=== PATIENT | male | born 1950 ===

== ENCOUNTER 2022-04-17 05:55 | Inpatient (IN) ==
[2022-04-11 12:49] LABS: Basophils # 0.1 10*3/uL (0.0-0.2); Basophils % 0.4 % (0.0-0.8); Eosinophils # 0.3 10*3/uL (0.0-0.87); Hematocrit 31.8 VOL% (42.0-52.0); Hemoglobin 9.7 GM/DL (14.0-18.0); Immature Granulocytes % 0.9 %; Lymphocytes # 1.9 10*3/uL (1.4-4.0); Lymphocytes % 16.5 % (21.2-54.2); Mean Corpuscular HGB Conc 30.5 GM/DL (32-36); Mean Corpuscular Volume 92.7 FL (87-102); Mean Platelet Volume 9.9 FL (9.6-12.0); Monocytes % 8.4 % (1.7-12.7); Neutrophils % 70.8 % (38.7-73.9); Platelet Count 323 T/CUMM (130-400); Red Blood Count 3.43 MC/CUMM (3.8-5.5); Red Cell Distribution Width 14.3 % (9.3-17.3); White Blood Count 11.4 T/CUMM (4-12)
[2022-04-11 13:01] LABS: Alanine Aminotransferase 15 U/L (16-61); Albumin 3.8 G/DL (3.4-5.0); Alkaline Phosphatase 55 U/L (45-117); Aspartate Amino Transferase 9 U/L (0-37); Bilirubin,Total < 0.39 MG/DL (0.20-1.00); Blood Urea Nitrogen 51 MG/DL (7-18); Calcium 9.2 MG/DL (8.5-10.1); Carbon Dioxide 26 MMOL/L (21-32); Chloride 112 MMOL/L (98-107); Glucose 255 MG/DL (74-106); Potassium 5.1 MMOL/L (3.5-5.1); Sodium 143 MMOL/L (136-145); Total Protein 6.8 G/DL (6.4-8.2)
[2022-04-17] MEDS ORDERED: cefTRIAXone 1,000 MG in SODIUM CHLORIDE 0.9% 100 ML IV ONE (06:00)
[2022-04-17] MEDS ORDERED: ALVIMOPAN 12 MG CAPSULE PO ONE (06:00)
[2022-04-17] MEDS ORDERED: SEVOFLURANE 1 UNIT/15 MINUTE INH ONE (06:17)
[2022-04-17] MEDS ORDERED: propofoL 200 MG/20 ML VIAL IV ONE (06:17)
[2022-04-17] MEDS ORDERED: LIDOCAINE 2% 5 ML VIAL ONE ×2 (06:17→06:52)
[2022-04-17] MEDS ORDERED: ONDANSETRON 4 MG/2 ML VIAL ONE (06:17)
[2022-04-17] MEDS ORDERED: ETOMIDATE 40 MG/20 ML VIAL IV ONE (06:17)
[2022-04-17] MEDS ORDERED: PHENYLEPHRINE 1 MG/10 ML SYRINGE IV ONE (06:17)
[2022-04-17] MEDS ORDERED: ROCURONIUM 50 MG/5 ML VIAL IV ONE (06:17)
[2022-04-17] MEDS ORDERED: MIDAZOLAM 2 MG/2 ML VIAL ONE (06:18)
[2022-04-17] MEDS ORDERED: fentaNYL 100 MCG/2 ML VIAL ONE ×2 (06:18→07:19)
[2022-04-17] MEDS ORDERED: SODIUM CHLORIDE 0.9% 250 ML IV SCH (06:30)
[2022-04-17 06:35] LABS: Hematocrit 31.6 VOL% (42.0-52.0); Hemoglobin 9.8 GM/DL (14.0-18.0)
[2022-04-17] MEDS ORDERED: HEPARIN 5,000 UNIT/1 ML VIAL ONE ×2 (06:38→09:49)
[2022-04-17] MEDS ORDERED: ROPIVACAINE 0.5% 30 ML VIAL ONE ×2 (06:38→06:52)
[2022-04-17] MEDS ORDERED: LIDOCAINE 1%/EPI INJ 20 ML VIAL ONE (06:38)
[2022-04-17] MEDS ORDERED: TISSUE ADHESIVE 1 EACH APPLICATOR TOP ONE (06:39)
[2022-04-17] MEDS ORDERED: DEXAMETHASONE 4 MG/1 ML VIAL ONE (06:52)
[2022-04-17] MEDS ORDERED: ePHEDrine 50 MG/ML VIAL ONE ×2 (07:46→10:23)
[2022-04-17] MEDS ORDERED: SODIUM CHLORIDE 0.9% 500 ML IV ONE (07:50)
[2022-04-17] MEDS ORDERED: PHENYLEPHRINE 10 MG/1 ML VIAL IV ONE ×2 (07:51→10:42)
[2022-04-17] MEDS ORDERED: SODIUM CHLORIDE 0.9% IV ONE (08:30)
[2022-04-17] MEDS ORDERED: DESMOPRESSIN IV ONE (08:30)
[2022-04-17 08:50] LABS: Bacteria,Urine Occasional /HPF (Few); Hyaline Casts,Urine 5 /LPF (0-3); Mucus,Urine Occasional /LPF (Occasional); RBC,Urine 1 /HPF (0-4)
[2022-04-17 08:51] LABS: Bilirubin,Urine Negative (Negative); Blood, Urine Negative (Negative); Glucose,Urine (UA) Negative (Negative); Ketones,Urine Negative (Negative); Nitrite,Urine Negative (Negative); Protein,Urine Negative (Negative); Urine Appearance Clear (Clear); Urine Color Yellow (Yellow); Urine Specific Gravity 1.015 (1.001-1.035)
[2022-04-17 08:52] LABS: Urine Urobilinogen 0.2 eU/dL (<2.0)
[2022-04-17] MEDS ORDERED: SODIUM CHLORIDE 0.9% 250 ML IV ONE (09:07)
[2022-04-17] MEDS ORDERED: DESMOPRESSIN 4 MCG/1 ML AMP IV ONE (09:30)
[2022-04-17] MEDS ORDERED: CALCIUM CHLORIDE 1,000 MG/10 ML VIAL IV ONE (10:04)
[2022-04-17] MEDS ORDERED: SODIUM BICARBONATE 50 MEQ/50 ML VIAL IV ONE (10:20)
[2022-04-17] MEDS ORDERED: HYDROmorphone 1 MG/1 ML SYRINGE IV PRN (10:47)
[2022-04-17] MEDS ORDERED: oxyCODONE/ACETAMINOPHEN 5-325 MG TABLET PO PRN (10:47)
[2022-04-17] MEDS ORDERED: diphenhydrAMINE 50 MG/1 ML VIAL IV PRN (10:47)
[2022-04-17] MEDS ORDERED: PROMETHAZINE 25 MG/1 ML VIAL IM PRN (10:47)
[2022-04-17] MEDS ORDERED: ONDANSETRON 4 MG/2 ML VIAL IV PRN (10:47)
[2022-04-17] MEDS ORDERED: SIMETHICONE CHEW 125 MG TABLET PO PRN (10:47)
[2022-04-17] MEDS ORDERED: ALBUTEROL 2.5 MG/3 ML NEB RESP TX PRN (10:51)
[2022-04-17] MEDS ORDERED: DEXTROSE 10% 250 ML BAG IV PRN (10:53)
[2022-04-17] MEDS ORDERED: GLUCAGON 1 MG VIAL IM PRN (10:53)
[2022-04-17] MEDS ORDERED: SUGAMMADEX 200 MG/2 ML VIAL IV ONE (10:58)
[2022-04-17] MEDS ORDERED: ceFAZolin 1,000 MG VIAL ONE (11:00)
[2022-04-17] MEDS ORDERED: FUROSEMIDE 20 MG/2 ML VIAL ONE (11:24)
[2022-04-17 11:55] LABS: Basophils # 0.1 10*3/uL (0.0-0.2); Basophils % 0.4 % (0.0-0.8); Eosinophils # 0.1 10*3/uL (0.0-0.87); Eosinophils % 0.8 % (0.00-10.9); Hematocrit 30.7 VOL% (42.0-52.0); Hemoglobin 9.4 GM/DL (14.0-18.0); Immature Granulocytes % 0.7 %; Lymphocytes # 1.4 10*3/uL (1.4-4.0); Lymphocytes % 10.1 % (21.2-54.2); Mean Corpuscular HGB Conc 30.6 GM/DL (32-36); Mean Corpuscular Volume 92.7 FL (87-102); Mean Platelet Volume 9.2 FL (9.6-12.0); Monocytes # 0.5 10*3/uL (0.11-0.8); Monocytes % 3.6 % (1.7-12.7); Neutrophils % 84.4 % (38.7-73.9); Platelet Count 269 T/CUMM (130-400); Red Blood Count 3.31 MC/CUMM (3.8-5.5); Red Cell Distribution Width 14.5 % (9.3-17.3); White Blood Count 14.3 T/CUMM (4-12)
[2022-04-17 12:13] LABS: Calcium 8.8 MG/DL (8.5-10.1); Potassium 4.9 MMOL/L (3.5-5.1)
[2022-04-17] MEDS: INSULIN REGULAR 100 UNIT/ML SUBCUT SCH ×3 (12:52→21:24)
[2022-04-17] MEDS: ACETAMINOPHEN 325 MG TABLET PO SCH ×3 (12:52→23:03)
[2022-04-17] MEDS ORDERED: hydrALAZINE 20 MG/1 ML VIAL IV PRN (14:20)
[2022-04-17] MEDS: SODIUM CHLORIDE 0.9% 1,000 ML IV SCH ×2 (16:57→23:08)
[2022-04-17] MEDS: cloNIDine 0.1 MG TABLET PO SCH (21:23)
[2022-04-17] MEDS: DOCUSATE SODIUM 100 MG CAPSULE PO SCH (21:24)
[2022-04-17] MEDS: GABAPENTIN 100 MG CAPSULE PO SCH (21:24)
[2022-04-17] MEDS: ALVIMOPAN 12 MG CAPSULE PO SCH (21:24)
[2022-04-17] MEDS: DOXAZOSIN 4 MG TABLET PO SCH (21:24)
[2022-04-17] MEDS: BUDESONIDE/FORMOTEROL 160-4.5 INHALER 6 GM INH SCH (23:06)
[2022-04-18] MEDS: SODIUM CHLORIDE 0.9% 1,000 ML IV SCH ×2 (03:02→15:00)
[2022-04-18] MEDS: ACETAMINOPHEN 325 MG TABLET PO SCH ×4 (04:07→22:04)
[2022-04-18 05:59] LABS: Basophils % 0.1 % (0.0-0.8); Eosinophils % 0.1 % (0.00-10.9); Hematocrit 27.7 VOL% (42.0-52.0); Hemoglobin 8.2 GM/DL (14.0-18.0); Immature Granulocytes % 0.6 %; Immature Granulocytes Absolute 0.09 #; Lymphocytes # 1.2 10*3/uL (1.4-4.0); Lymphocytes % 7.8 % (21.2-54.2); Mean Corpuscular HGB Conc 29.6 GM/DL (32-36); Mean Corpuscular Volume 94.9 FL (87-102); Mean Platelet Volume 9.7 FL (9.6-12.0); Monocytes # 1.6 10*3/uL (0.11-0.8); Monocytes % 10.1 % (1.7-12.7); Neutrophils % 81.3 % (38.7-73.9); Platelet Count 267 T/CUMM (130-400); Red Blood Count 2.92 MC/CUMM (3.8-5.5); Red Cell Distribution Width 14.7 % (9.3-17.3); White Blood Count 15.6 T/CUMM (4-12)
[2022-04-18 06:18] LABS: Calcium 8.4 MG/DL (8.5-10.1); Osmolality,Calculated 307.6 MOS/KG (273-304); Potassium 4.8 MMOL/L (3.5-5.1)
[2022-04-18 06:18] LABS: Parathyroid Hormone Intact 135.5 PG/ML (18.4-80.1)
[2022-04-18 06:26] LABS: Phosphorous 5.5 MG/DL (2.5-4.9)
[2022-04-18 06:29] LABS: Risk Ratio 4.61; VLDL Cholesterol 22.4 MG/DL
[2022-04-18] MEDS: cefTRIAXone 1,000 MG in SODIUM CHLORIDE 0.9% 100 ML IV SCH (08:43)
[2022-04-18] MEDS: ALVIMOPAN 12 MG CAPSULE PO SCH ×3 (08:47→21:34)
[2022-04-18] MEDS: AMIODARONE 200 MG TABLET PO SCH ×2 (08:47→11:34)
[2022-04-18] MEDS: DOXAZOSIN 4 MG TABLET PO SCH ×3 (08:47→21:36)
[2022-04-18] MEDS: METOPROLOL SUCCINATE XL 50 MG TABLET PO SCH ×2 (08:48→11:35)
[2022-04-18] MEDS: PANTOPRAZOLE 40 MG TABLET PO SCH (08:48)
[2022-04-18] MEDS: FINASTERIDE 5 MG TABLET PO SCH ×2 (08:48→08:51)
[2022-04-18] MEDS: DOCUSATE SODIUM 100 MG CAPSULE PO SCH ×3 (08:48→21:36)
[2022-04-18] MEDS: INSULIN REGULAR 100 UNIT/ML SUBCUT SCH ×4 (10:32→22:06)
[2022-04-18] MEDS: cloNIDine 0.1 MG TABLET PO SCH ×2 (10:33→21:34)
[2022-04-18] MEDS: BUDESONIDE/FORMOTEROL 160-4.5 INHALER 6 GM INH SCH ×2 (13:36→21:40)
[2022-04-18 14:04] LABS: Hepatitis B Core IgM Quant < 0.05 Index; Hepatitis B Surface Ag Quant < 0.10 Index; Hepatitis B Surface Ag Result Non-Reactive (NonReactive); Hepatitis C Virus Ab Quant 0.06 Index; Hepatitis C Virus Ab Result Non-Reactive (NonReactive)
[2022-04-18] MEDS ORDERED: HEPARIN 10,000 UNIT/10 ML VIAL IV PRN (14:05)
[2022-04-18] MEDS: GABAPENTIN 100 MG CAPSULE PO SCH (21:34)
[2022-04-19 04:50] LABS: Basophils % 0.1 % (0.0-0.8); Eosinophils # 0.3 10*3/uL (0.0-0.87); Eosinophils % 1.8 % (0.00-10.9); Hematocrit 25.1 VOL% (42.0-52.0); Hemoglobin 7.7 GM/DL (14.0-18.0); Immature Granulocytes % 0.5 %; Immature Granulocytes Absolute 0.07 #; Lymphocytes # 1.3 10*3/uL (1.4-4.0); Lymphocytes % 9.5 % (21.2-54.2); Mean Corpuscular HGB Conc 30.7 GM/DL (32-36); Mean Platelet Volume 9.6 FL (9.6-12.0); Monocytes # 1.6 10*3/uL (0.11-0.8); Monocytes % 11.6 % (1.7-12.7); Neutrophils % 76.5 % (38.7-73.9); Platelet Count 211 T/CUMM (130-400); Red Cell Distribution Width 14.8 % (9.3-17.3); White Blood Count 13.8 T/CUMM (4-12)
[2022-04-19 05:06] LABS: Calcium 8.3 MG/DL (8.5-10.1); Osmolality,Calculated 294.1 MOS/KG (273-304); Potassium 4.3 MMOL/L (3.5-5.1)
[2022-04-19] MEDS: ACETAMINOPHEN 325 MG TABLET PO SCH ×4 (06:13→22:45)
[2022-04-19] MEDS: cloNIDine 0.1 MG TABLET PO SCH ×2 (08:35→21:32)
[2022-04-19] MEDS: AMIODARONE 200 MG TABLET PO SCH (08:35)
[2022-04-19] MEDS: cefTRIAXone 1,000 MG in SODIUM CHLORIDE 0.9% 100 ML IV SCH (08:35)
[2022-04-19] MEDS: ALVIMOPAN 12 MG CAPSULE PO SCH ×2 (08:35→21:32)
[2022-04-19] MEDS: FINASTERIDE 5 MG TABLET PO SCH (08:35)
[2022-04-19] MEDS: PANTOPRAZOLE 40 MG TABLET PO SCH (08:36)
[2022-04-19] MEDS: METOPROLOL SUCCINATE XL 50 MG TABLET PO SCH (08:36)
[2022-04-19] MEDS: DOCUSATE SODIUM 100 MG CAPSULE PO SCH ×2 (08:36→21:32)
[2022-04-19] MEDS: BUDESONIDE/FORMOTEROL 160-4.5 INHALER 6 GM INH SCH ×2 (08:36→21:35)
[2022-04-19] MEDS: DOXAZOSIN 4 MG TABLET PO SCH ×2 (08:36→21:32)
[2022-04-19] MEDS: INSULIN REGULAR 100 UNIT/ML SUBCUT SCH ×4 (09:55→21:37)
[2022-04-19] MEDS ORDERED: EPOETIN ALFA-EPBX 10,000 UNIT/ML VIAL IV SCH (15:30)
[2022-04-19] MEDS: GABAPENTIN 100 MG CAPSULE PO SCH (21:33)
[2022-04-20] MEDS: ACETAMINOPHEN 325 MG TABLET PO SCH ×2 (05:07→11:59)
[2022-04-20 05:41] LABS: Basophils % 0.2 % (0.0-0.8); Eosinophils # 0.5 10*3/uL (0.0-0.87); Eosinophils % 3.9 % (0.00-10.9); Hematocrit 26.2 VOL% (42.0-52.0); Hemoglobin 8.1 GM/DL (14.0-18.0); Immature Granulocytes % 0.7 %; Immature Granulocytes Absolute 0.09 #; Lymphocytes # 1.5 10*3/uL (1.4-4.0); Lymphocytes % 11.6 % (21.2-54.2); Mean Corpuscular HGB Conc 30.9 GM/DL (32-36); Mean Corpuscular Volume 92.6 FL (87-102); Mean Platelet Volume 9.3 FL (9.6-12.0); Monocytes # 1.6 10*3/uL (0.11-0.8); Monocytes % 12.3 % (1.7-12.7); Neutrophils % 71.3 % (38.7-73.9); Platelet Count 199 T/CUMM (130-400); Red Blood Count 2.83 MC/CUMM (3.8-5.5); Red Cell Distribution Width 14.2 % (9.3-17.3); White Blood Count 12.8 T/CUMM (4-12)
[2022-04-20 05:57] LABS: Calcium 7.8 MG/DL (8.5-10.1); Osmolality,Calculated 289.1 MOS/KG (273-304); Potassium 3.9 MMOL/L (3.5-5.1)
[2022-04-20] MEDS: INSULIN REGULAR 100 UNIT/ML SUBCUT SCH ×3 (07:45→16:20)
[2022-04-20] MEDS: PANTOPRAZOLE 40 MG TABLET PO SCH (08:54)
[2022-04-20] MEDS: DOXAZOSIN 4 MG TABLET PO SCH (08:54)
[2022-04-20] MEDS: METOPROLOL SUCCINATE XL 50 MG TABLET PO SCH (08:55)
[2022-04-20] MEDS: DOCUSATE SODIUM 100 MG CAPSULE PO SCH (08:55)
[2022-04-20] MEDS: BUDESONIDE/FORMOTEROL 160-4.5 INHALER 6 GM INH SCH (08:55)
[2022-04-20] MEDS: AMIODARONE 200 MG TABLET PO SCH (08:55)
[2022-04-20] MEDS: cloNIDine 0.1 MG TABLET PO SCH (08:55)
[2022-04-20] MEDS: ALVIMOPAN 12 MG CAPSULE PO SCH (08:55)
[2022-04-20] MEDS: FINASTERIDE 5 MG TABLET PO SCH (08:55)
[2022-04-20] MEDS: cefTRIAXone 1,000 MG in SODIUM CHLORIDE 0.9% 100 ML IV SCH (08:56)
[2022-04-20 15:53] VITALS: BP 152/71
[2022-04-20] MEDS ORDERED: glipiZIDE 5 MG TABLET PO SCH (16:30)
== END 2022-04-20 17:58 | disposition home health service (06) | DRG 656 ==
LOC: N.OR 05:55 → N.SDSINP 05:56 → EDSTATUS 07:30 → N.SDSINP 10:47 → N.3E 12:24
PROVIDERS: ADMIT Surgery; ATTEND Surgery